=== PATIENT | male | born 1985 | race African-American/Black ===

== ENCOUNTER 2016-06-18 08:45 | Emergency (ER) | payer SELFPAY ==
[~2016-06-18] VITALS: Ht 185.4 cm; Wt 72.6 kg
--- NOTE | 2016-06-18 08:49 | NUR ---
SELF PRESENT TO ED DUE TO CHEST PAIN, THROBBING, NON RADIATING, 6/10 SINCE LAST NIGHT,. PATIENT IS AAO3. APPEARS IN NO APPARENT DISTRESS, RESPIRATION EVEN AND UNLABORED, SKIN IS WARM TO TOUCH AND NON DIAPHORETIC. PATIENT IS AFEBRILE. VSS. AWAITING FOR MD BETH
--- NOTE | 2016-06-18 08:59 | NUR ---
IV ACCESSED TO [facility] 20. BLOOD SAMPLE SENT TO LAB
--- NOTE | 2016-06-18 09:01 | NUR ---
SUPERINTENDENT TRANSMISSION AT
[2016-06-18] MEDS ORDERED: PANTOPRAZOLE 40 MG TABLET.DR PO ONE ×2 (09:27→09:30)
[2016-06-18 09:38] LABS: BASOPHILS % (AUTO) 0.2 % (0.0-2.0); HEMATOCRIT 45 % (39-51); LYMPHOCYTES # (AUTO) 1.6 /CMM (0.8-4.8); LYMPHOCYTES % (AUTO) 44.5 % (20.0-44.0); MEAN CORPUSCULAR HEMOGLOBIN 29 PG (26.0-33.0); MEAN CORPUSCULAR HGB CONC 34 g/dl (31.0-36.0); MEAN CORPUSCULAR VOLUME 87 fL (80-96); MONOCYTES # (AUTO) 0.4 /CMM (0.1-1.30); MONOCYTES % (AUTO) 10.2 % (2.0-12.0); NEUTROPHILS # (AUTO) 1.5 /CMM (1.8-8.9); NEUTROPHILS % (AUTO) 44.1 % (43.0-81.0); PLATELET COUNT (AUTO) 200 /CMM (150-450); RDW COEFFICIENT OF VARIATION 12.2 (11.5-15.0); RED BLOOD CELL COUNT(AUTO) 5.12 MIL/uL (4.5-6.0); WHITE BLOOD COUNT (AUTO) 3.5 K/uL (4.3-11.0)
[2016-06-18 09:45] LABS: CALCIUM, SERUM 8.7 mg/dL (8.5-10.1); CARBON DIOXIDE 30 mmol/L (21-32); CHLORIDE 102 mmol/L (98-107); CREATININE 1.1 mg/dL (0.6-1.3); GFR 78 mL/min (>60); GLUCOSE 111 mg/dL (74-106); POTASSIUM 3.9 mmol/L (3.5-5.1); SODIUM SERUM 139 mmol/L (136-145); UREA NITROGEN, BLOOD 11 mg/dL (7-18)
[2016-06-18 09:55] LABS: TROPONIN I < 0.017 ng/mL (0.00-0.056)
[2016-06-18 10:08] LABS: INR 1.01 (0.87-1.13); PROTHROMBIN TIME 10.5 SECS (9.5-12.7)
[2016-06-18 11:11] VITALS: BP 120/78
--- NOTE | 2016-06-18 11:11 | NUR ---
Patient discharged to home in stable condition. Written and verbal after care instructions given. Patient verbalizes understanding of instruction.
== END 2016-06-18 11:12 | disposition home or self-care (01) ==
LOC: ER 08:48
DX: R07.9 Chest pain, unspecified (principal); K21.9 Gastro-esophageal reflux disease without esophagitis
CPT/HCPCS: 36415; 71010; 80048; 84484; 85025; 85730; 93005; 99285; A4606; Z7610